=== PATIENT | female | born 1970 | race African-American/Black ===

== ENCOUNTER 2018-11-26 09:32 | Emergency (ER) | payer BC ==
[~2018-11-26] VITALS: Ht 157.5 cm; Wt 66.0 kg
[2018-11-26] MEDS ORDERED: KETOROLAC 30MG/ML VIAL IV STA (10:56)
[2018-11-26] MEDS ORDERED: ACETAMINOPHEN 325MG TABLET PO ONE (11:00)
[2018-11-26] MEDS ORDERED: SODIUM CHLORIDE 0.9% 1,000 ML IV ONE (11:00)
[2018-11-26] MEDS ORDERED: DIPHENHYDRAMINE 50MG/ML VIAL IV ONE (11:00)
[2018-11-26] MEDS ORDERED: PROCHLORPERAZINE MALEATE 10MG TABLET PO ONE (11:00)
[2018-11-26] MEDS ORDERED: DEXAMETHASONE 4MG/ML 1ML VIAL IV SCH (11:00)
[2018-11-26 13:06] VITALS: BP 155/95
== END 2018-11-26 13:13 | disposition home or self-care (01) ==
LOC: ER 09:32
DX: I10 Essential (primary) hypertension (principal); R51 Headache; M32.9 Systemic lupus erythematosus, unspecified; M35.00 Sjogren syndrome, unspecified; F17.210 Nicotine dependence, cigarettes, uncomplicated; Z71.6 Tobacco abuse counseling
CPT/HCPCS: 70450; 81025; 96374; 96375; 99284; 99406; J1100; J1200; J1885; J7030; Q0164; Z7610